=== PATIENT | female | born 1990 | race Caucasian/White ===

== ENCOUNTER 2020-10-13 09:35 | Outpatient (REF) | payer OTHER, SELFPAY ==
[2020-10-13 10:20] LABS: MANUAL DIFF FLAG NO
[2020-10-13 10:24] LABS: Basophils Percent Auto 0.3 % (0-2); Eosinophils Absolute Auto 0.1 X10*3/uL (0.0-0.4); Eosinophils Percent Auto 1.2 % (0-4); Hematocrit 40.3 % (37-47); Hemoglobin 13.3 g/dl (12.0-16.0); Imm Gran Abs Auto 0.02 X10*3/uL (0.00-0.03); Imm Gran Pct Auto 0.3 % (0.0-0.4); Lymphocytes Absolute Auto 1.9 X10*3/uL (1.2-4.9); Lymphocytes Percent Auto 29.6 % (20-40); Mean Corpuscular Hemoglobin 29.2 pg (27.0-33.0); Mean Corpuscular Volume 88.4 fL (80-98); Mean Platelet Volume 9.1 fL (9.4-12.3); Monocytes Absolute Auto 0.5 X10*3/uL (0.1-1.2); Monocytes Percent Auto 7.2 % (2-11); Neutrophils Percent Auto 61.4 % (45-73); Platelet Count 192 X10*3/uL (160-400); Red Blood Count 4.56 X10*6/uL (4.20-5.50); Red Cell Distribution Width 12.5 % (11.0-16.0); White Blood Count 6.5 X10*3/uL (4.8-10.8)
[2020-10-13 10:54] LABS: Alanine Aminotransferase 22 U/L (0-31); Albumin Level 4.2 g/dL (3.5-5.0); Alkaline Phosphatase 98 U/L (39-117); Anion Gap 11 (12-20); Aspartate Amino Transferase 19 U/L (5-31); Bilirubin Total 0.2 mg/dL (0.0-1.0); Blood Urea Nitrogen 11 mg/dL (9-16); Carbon Dioxide 22 mmol/L (22-29); Chloride 107 mmol/L (96-108); Cholesterol 230 mg/dL; Estimated Glomerular Filt Rate > 60; Glucose Random 90 mg/dL (60-115); Lipase 15 U/L (8-78); Potassium 4.1 mmol/L (3.3-5.1); Sodium 136 mmol/L (135-145); Total Protein 7.5 g/dL (6.5-8.0)
[2020-10-13 11:19] LABS: Free T4 (Free Thyroxine) 0.95 ng/dL (0.71-1.85)
== END 2020-10-13 09:36 | disposition home or self-care (01) ==
LOC: HO.LAB 09:35
PROVIDERS: PCP Internal Medicine; Visit Provider Internal Medicine
DX: Z00.00 Encounter for general adult medical examination without abnormal findings (principal); R63.5 Abnormal weight gain
CPT/HCPCS: 36415; 80053; 82465; 83690; 84439; 84443; 85025; 86140

== ENCOUNTER 2021-11-29 15:16 | Outpatient (REF) | payer OTHER, SELFPAY ==
[2021-11-29 15:30] LABS: MANUAL DIFF FLAG NO
[2021-11-29 17:26] LABS: Basophils Percent Auto 0.3 % (0-2); Eosinophils Absolute Auto 0.1 X10*3/uL (0.0-0.4); Eosinophils Percent Auto 1.3 % (0-4); Hematocrit 40.7 % (37.0-47.0); Hemoglobin 13.3 g/dl (12.0-16.0); Imm Gran Abs Auto 0.02 X10*3/uL (0.00-0.03); Imm Gran Pct Auto 0.3 % (0.0-0.4); Lymphocytes Absolute Auto 2.5 X10*3/uL (1.2-4.9); Lymphocytes Percent Auto 33.2 % (20-40); Mean Corpuscular HGB Conc 32.7 g/dl (31.0-35.0); Mean Corpuscular Hemoglobin 29.6 pg (27.0-33.0); Mean Corpuscular Volume 90.6 fL (80.0-98.0); Monocytes Absolute Auto 0.7 X10*3/uL (0.1-1.2); Monocytes Percent Auto 8.8 % (2-11); Neutrophils Absolute Auto 4.3 x10*3/uL (2.0-8.3); Neutrophils Percent Auto 56.1 % (45-73); Platelet Count 225 X10*3/uL (160-400); Red Blood Count 4.49 X10*6/uL (4.20-5.50); Red Cell Distribution Width 12.8 % (11.0-16.0); White Blood Count 7.6 X10*3/uL (4.8-10.8)
[2021-11-29 17:57] LABS: Alanine Aminotransferase 39 U/L (0-31); Albumin Level 4.2 g/dL (3.5-5.0); Alkaline Phosphatase 113 U/L (39-117); Anion Gap 15 (12-20); Aspartate Amino Transferase 29 U/L (5-31); Bilirubin Total < 0.2 mg/dL (0.0-1.0); Blood Urea Nitrogen 16 mg/dL (9-16); Calcium 9.3 mg/dL (8.4-10.2); Carbon Dioxide 26 mmol/L (22-29); Chloride 104 mmol/L (96-108); Cholesterol 262 mg/dL; Estimated Glomerular Filt Rate > 60; Glucose Random 72 mg/dL (60-115); Sodium 141 mmol/L (135-145); Total Protein 7.8 g/dL (6.5-8.0)
[2021-11-29 18:08] LABS: Thyroid Stimulating Hormone 1.58 uIU/mL (0.32-4.0)
== END 2021-11-29 15:17 | disposition home or self-care (01) ==
LOC: HO.LAB 15:16
PROVIDERS: PCP Internal Medicine; Visit Provider Internal Medicine
DX: Z00.00 Encounter for general adult medical examination without abnormal findings (principal)
CPT/HCPCS: 36415; 80053; 82465; 84443; 85025

== ENCOUNTER 2021-12-15 09:15 | Outpatient (REF) | payer OTHER, SELFPAY ==
[2021-12-15 12:12] LABS: Cholesterol 254 mg/dL; HDL Cholesterol 47 mg/dL; LDL Cholesterol Calculated 180 mg/dl; Triglycerides 137 mg/dL
== END 2021-12-15 09:16 | disposition home or self-care (01) ==
LOC: HO.WFDLDS 09:15
PROVIDERS: Visit Provider Internal Medicine
DX: E78.00 Pure hypercholesterolemia, unspecified (principal)
CPT/HCPCS: 36415; 80061

== ENCOUNTER 2022-09-08 15:51 | Outpatient (REF) | payer OTHER, SELFPAY ==
[2022-09-08 16:00] LABS: MANUAL DIFF FLAG NO
[2022-09-08 16:16] LABS: Basophils Percent Auto 0.4 % (0-2); Eosinophils Absolute Auto 0.1 X10*3/uL (0.0-0.4); Eosinophils Percent Auto 1.3 % (0-4); Hematocrit 40.8 % (37.0-47.0); Hemoglobin 13.7 g/dl (12.0-16.0); Imm Gran Abs Auto 0.02 X10*3/uL (0.00-0.03); Imm Gran Pct Auto 0.3 % (0.0-0.4); Lymphocytes Absolute Auto 2.6 X10*3/uL (1.2-4.9); Lymphocytes Percent Auto 36.5 % (20-40); Mean Corpuscular HGB Conc 33.6 g/dl (31.0-35.0); Mean Corpuscular Hemoglobin 30.2 pg (27.0-33.0); Mean Corpuscular Volume 90.1 fL (80.0-98.0); Mean Platelet Volume 8.6 fL (9.4-12.3); Monocytes Absolute Auto 0.5 X10*3/uL (0.1-1.2); Monocytes Percent Auto 7.1 % (2-11); Neutrophils Absolute Auto 3.9 x10*3/uL (2.0-8.3); Neutrophils Percent Auto 54.4 % (45-73); Platelet Count 181 X10*3/uL (160-400); Red Blood Count 4.53 X10*6/uL (4.20-5.50); Red Cell Distribution Width 12.3 % (11.0-16.0); White Blood Count 7.2 X10*3/uL (4.8-10.8)
[2022-09-08 20:00] LABS: Anion Gap 14 (12-20); Blood Urea Nitrogen 14 mg/dL (9-16); Calcium 9.9 mg/dL (8.4-10.2); Carbon Dioxide 25 mmol/L (22-29); Chloride 106 mmol/L (96-108); Cholesterol 266 mg/dL; Estimated Glomerular Filt Rate > 60; Glucose Random 89 mg/dL (60-115); Potassium 4.1 mmol/L (3.3-5.1); Sodium 141 mmol/L (135-145)
[2022-09-08 20:07] LABS: Free T4 (Free Thyroxine) 0.91 ng/dL (0.71-1.85); Thyroid Stimulating Hormone 1.26 uIU/mL (0.32-4.0)
== END 2022-09-08 15:52 | disposition home or self-care (01) ==
LOC: HO.LAB 15:51
PROVIDERS: PCP Internal Medicine; Visit Provider Internal Medicine
DX: M54.9 Dorsalgia, unspecified (principal); R63.5 Abnormal weight gain; E78.00 Pure hypercholesterolemia, unspecified
CPT/HCPCS: 36415; 80048; 82465; 84439; 84443; 85025

== ENCOUNTER 2022-10-02 10:19 | Outpatient (REF) | payer OTHER, SELFPAY ==
[2022-10-02 12:47] LABS: Cholesterol 251 mg/dL; HDL Cholesterol 46 mg/dL; LDL Cholesterol Calculated 176 mg/dl; Triglycerides 147 mg/dL
== END 2022-10-02 10:20 | disposition home or self-care (01) ==
LOC: HO.WFDLDS 10:19
PROVIDERS: Visit Provider Internal Medicine
DX: E78.00 Pure hypercholesterolemia, unspecified (principal)
CPT/HCPCS: 36415; 80061

== ENCOUNTER 2024-12-23 15:23 | Outpatient (REF) | payer OTHER, SELFPAY ==
[2024-12-23 16:37] LABS: MANUAL DIFF FLAG NO
[2024-12-23 17:07] LABS: Hematocrit 39.6 % (37.0-47.0); Hemoglobin 13.1 g/dl (12.0-16.0); Imm Gran Abs Auto 0.02 X10*3/uL (0.00-0.03); Imm Gran Pct Auto 0.3 % (0.0-0.4); Lymphocytes Absolute Auto 2.5 X10*3/uL (1.2-4.9); Mean Corpuscular HGB Conc 33.1 g/dl (31.0-35.0); Mean Corpuscular Hemoglobin 29.6 pg (27.0-33.0); Mean Corpuscular Volume 89.4 fL (80.0-98.0); NRBC Abs Auto 0.000 X10*3/uL (0.0-0.012); NRBC Pct Auto 0.0 /100WBC (0.0-0.2); Platelet Count 218 X10*3/uL (160-400); Red Blood Count 4.43 X10*6/uL (4.20-5.50); White Blood Count 7.6 X10*3/uL (4.8-10.8)
[2024-12-23 17:39] LABS: Alanine Aminotransferase 22 U/L (0-31); Albumin Level 4.4 g/dL (3.5-5.0); Alkaline Phosphatase 88 U/L (39-117); Anion Gap 11 (12-20); Aspartate Amino Transferase 20 U/L (5-31); Blood Urea Nitrogen 15 mg/dL (9-16); Calcium 9.5 mg/dL (8.4-10.2); Carbon Dioxide 27 mmol/L (22-29); Chloride 105 mmol/L (96-108); Cholesterol 228 mg/dL (<200); Estimated Glomerular Filt Rate > 60; HDL Cholesterol 45 mg/dL (>40); Potassium 4.3 mmol/L (3.3-5.1); Sodium 139 mmol/L (135-145); Total Protein 7.9 g/dL (6.5-8.0); Triglycerides 214 mg/dL (<150)
[2024-12-24 08:00] LABS: Syphilis Screen Nonreactive (Nonreactive)
[2024-12-24 08:18] LABS: HBS Num1 0.85 mIU/mL (0-7.99); HBc Num1 0.07 S/CO (0.00-0.79); HBsAGNum1 0.55 S/CO (0.00-0.99); HIV Num 1 0.06 S/CO (0.00-0.99); Hepatitis A Antibody IgM 0.18 Index (0-0.79); Hepatitis B Surface Antigen Negative (Negative); ~HepC Num1 0.07 S/CO (0.00-0.79); ~Hepatitis A Antibody IgM Nonreactive (Nonreactive); ~Hepatitis B Surface Antibody NONREACTIVE (Nonreactive); ~Hepatitis C Antibody Nonreactive (Nonreactive)
== END 2024-12-23 15:24 | disposition home or self-care (01) ==
LOC: HO.LAB 15:23
PROVIDERS: PCP Student in an Organized Health Care Education/Training Program; Visit Provider Student in an Organized Health Care Education/Training Program
DX: Z76.89 Persons encountering health services in other specified circumstances (principal); F41.1 Generalized anxiety disorder; N64.9 Disorder of breast, unspecified; N63.13 Unspecified lump in the right breast, lower outer quadrant; Z86.018 Personal history of other benign neoplasm; Z80.3 Family history of malignant neoplasm of breast
CPT/HCPCS: 36415; 80053; 80061; 82306; 83036; 84443; 85025; 86704; 86706; 86709; 86780; 86803; 87340; 87389; 96127

== ENCOUNTER 2024-12-23 15:23 | Outpatient (AMB) | payer OTHER, SELFPAY ==
--- NOTE | 2024-12-23 15:25 | A.OFFPC_ITS ---
Vital Signs 12/23/24 15:32 Height 5 ft 7 in Weight 227 lb BMI 35.5 BP 132/84 Blood Pressure Location Lt brachial Position Sitting Pulse 88 Pulse Source Pulse Oximeter Temp 97.6 F Temp Source Temporal Artery Scan Pulse Oximetry (%) 98 Oxygen Delivery Method Room Air Intake Visit Reasons: [id number] contracting support specialist referral Tomographic Tech Required: No Accompanied by: Self / Same As Patient Allergies No Known Allergies Allergy (Verified 12/23/24 15:26) Medication List - Last Reconciled 12/23/24 by Kirt Yadav MD sertraline 100 mg PO DAILY Tobacco use date assessed: 12/23/24 Dental Screening Dental Screen Date: 12/23/24 Did you have a dental visit in the last 12 months?: Yes Did you have a dental problem in the last 6 months where you did not have access to dental care?: No HPI HPI Comments History of Present Illness Details The patient is a 34-year-old female presenting with concerns about a newly noticed indentation in her right breast when she lifts her arm. The patient reports that she first noticed this indentation over the summer and asserts that it has not changed in size. She denies having had a mammogram due to age limitations and issues with scheduling an appointment with an OPERATION RESEARCH ANALYST since her previous provider's office transition. The patient shares her history of over the past 9 years, having recently ceased nursing a few mon ths before her youngest child turned [age]. During periods of , residual milk was still occasionally expressed, yet she denies any associated pain or discoloration around the breast. 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 Medical History: - Generalized Anxiety Disorder, managed with sertraline Surgical History: - Cholecystectomy (gallbladder removal) - Lumpectomy, left breast (phyllodes nico or, benign) - Vaginal septum resection Medications: - Sertraline, daily for Generalized Anxi ety Disorder Family History: - Maternal grandmother: Ovarian cancer - Paternal grandmother: Breast cancer Social History: - Non-smoker, never smoked - Alcohol intake: Occasionally, with con sumption typically once per month, sometimes exceeding six drinks - Mother to three daughters - Recent cessation of [facility] Medical History (Updated 12/23/24 @ 15:58 by Kirt Yadav MD) History of benign phyllodes neoplasm of breast Breast lesion Generalized anxiety disorder Family History (Updated 12/23/24 @ 15:34 by Germania Cordero MA) Mother No problems noted. Father No problems noted. Social History Housing: House Patient Tobacco Use Status: Never used Tobacco e-Cigarette/Vaping Use: Never Used service: No Current occupational status: employed Cognitive needs: No Hearing needs: No Vision needs: No Questionnaire PHQ-9 Over the last 2 weeks, how often have you been bothered by any of the following problems? 1. Little interest or pleasure in doing things: not at all 2. Feeling down, depressed, or hopeless: several days (sometimes anxiety) 3. Trouble falling or staying asleep, or sleeping too much: several days (sometimes trouble falling asleep) 4. Feeling tired or having little energy: several days 5. Poor appetite or overeating: several days 6. Feeling bad about yourself - or that you are a failure or have let yourself or your family down: not at all 7. Trouble concentrating on things, such as reading the newspaper or watching television: not at all 8. Moving or speaking so slowly that other people could have noticed. Or the opposite - being so fidgety or restless that you have been moving around a lot more than usual: not at all 9. Thoughts that you would be better off or of hurting yourself in some way: not at all Total score: 4 Depression Screening Interpretation: Negative Depression Screening Done: Yes 55406 - PHQ-9 Billing: Yes Source: Developed by Drs. Mahin Mcdonnell, Mariia Jones, Gautam Alfonso and colleagues, with an educational lexy from [employer]. Thrive Questionnaire Date Thrive assessed: 12/23/24 I am a: Patient What is your living situation today?: I have a steady place to live Within the past 12 months, did the food you bought not last and you didn't have the money to get more?: Never true Within the past 12 months, did you worry whether your food would run out before you got money to buy more?: Never true Do you have trouble paying for medicines?: No Do you have trouble getting transportation to medical appointments?: No Do you have trouble paying your heating and electricity bill?: No Do you have trouble taking care of your child, family member or friend?: No Do you have trouble with day-to-day activities such as bathing, preparing meals, shopping, managing finances, etc.?: No Are you currently unemployed and looking for a job?: No Are you interested in more education?: No THRIVE Score: 0 AUDIT C Alcohol Use Questionnaire (AUDIT-C) 1. How often do you have a drink containing alcohol?: Monthly or less 2. How many drinks containing alcohol do you have on a typical day when you are drinking?: 3 or 4 3. How often do you have six or more drinks on one occasion?: Less than monthly Total Score: 3 Score Reviewed/Action Taken: Yes BOYD-7 AMB Questionnaire BOYD-7 Date BOYD - 7 assessed: 12/23/24 Feeling nervous, anxious, or on edge: 1 = Several days Not being able to stop or control worryin = Not at all Worrying too much about different things: 0 = Not at all Trouble relaxin = Not at all Being so restless that it is hard to sit still: 0 = Not at all Becoming easily annoyed or irritable: 0 = Not at all Feeling afraid as if something awful might happen: 0 = Not at all Total BOYD-7 score (0-4 normal; 5-9 mild; 10-14 moderate; 15-21 severe): 1 Source: Developed by Drs. Mahin Mcdonnell, Mariia Jones, Gautam Alfonso and colleagues, with an educational lexy from [employer]. BOYD-7 Assessment Billing BOYD-7 Assessment Tool: BOYD-7 Assessment 74448 Review of Systems Const Details: - Breasts: Reports asymmetry and indentation on lifting arm - Psychiatric: Denies current symptoms of depression or anxiety being uncontrolled with medication All systems reviewed & are unremarkable except as reviewed in HPI and above Physical exam (Primary Care) Vital Signs: Last Vital Signs Temp 97.6 F 12/23/24 15:32 Pulse 88 12/23/24 15:32 BP 132/84 12/23/24 15:32 Pulse Ox 98 12/23/24 15:32 Oxygen Delivery Method Room Air 12/23/24 15:32 BMI result Body Mass Index 35.5 Tobacco/Smoking Status: Tobacco use Status Tobacco use date assessed 12/23/24 12/23/24 15:27 Patient Tobacco Use Status Never used Tobacco 12/23/24 15:27 e-Cigarette/Vaping Use Never Used 12/23/24 15:27 PHQ-9: PHQ-9 Score PHQ-9: Total score 4 12/23/24 15:41 Depression Screening Interpretation: Negative Thrive Assessment: Date of Thrive Assessment Date Thrive assessed 12/23/24 12/23/24 15:27 Const Other: General: +Alert and oriented, Well nourished, No acute distress. Eye: Pupils are equal, round and reactive to light, Intact accommodation, Extraocular movements are intact, Normal conjunctiva, Vision unchanged. HENT: Normocephalic, Atraumatic, Tympanic membranes are clear, Normal hearing, Oral mucosa is moist, No pharyngeal erythema, Ear canals patent. Respiratory: Lungs CTA bilaterally, No wheeze, Respirations are non-labored. Cardiovascular: Regular rate, Regular rhythm, S1 auscultated, S2 auscultated, No murmur, Good pulses equal in all extremities, Normal peripheral perfusion, No edema. Gastrointestinal: Soft, Non-tender, Non-distended, Normal bowel sounds, No organomegaly. Breast: Indentation of Right breast at 7 O Clock position with possible mobile mass felt Musculoskeletal: Normal range of motion, Normal strength, No tenderness, No swelling, No deformity, Normal gait. Integumentary: Warm, Dry, [place], Intact. Neurologic: Alert, Oriented, Normal sensory, Normal motor function, No focal defects, Cranial Nerves II-XII are grossly intact, Normal deep tendon reflexes. Psychiatric: Cooperative, Appropriate mood & affect, Normal judgment. Coding Level of Care Code New Pt Level 4 (11196) Diagnoses Generalized anxiety disorder F41.1 Breast lesion N64.9 History of benign phyllodes neoplasm of breast Z86.018 Additional Codes BOYD-7 Assessment Billing - BOYD-7 Assessment Tool: BOYD-7 Assessment 35084 ([id number]) PHQ-9 - 78048 - PHQ-9 Billing: Yes ([id number]) Assessment & Plan Assessment & Plan (1) Generalized anxiety disorder: Comment: - Continue current medication of sertraline as it is well managing the anxiety symptoms. Discuss the potential for gradual discontinuation in the future as per the patient?s request but advise against changes due to risk of symptom recurrence. Code(s): F41.1 - Generalized anxiety disorder Category: Medical (2) Breast lesion: Comment: - Noticed indentation of the right breast over the past few months, with no lumps appreciated however on exam dose seem to have a possible lump at the 7 O Clock position with visible indentation under it. - Given her prior history of Breast Lumps requiring lumpectomy will obtain a diagnostic mammogram & breast ultrasdound STAT and refer to OBGYN and possibly breast surgery Code(s): N64.9 - Disorder of breast, unspecified Category: Medical (3) History of benign phyllodes neoplasm of breast: Comment: - Monitor with regular breast evaluations and ensure past surgical sites are asymptomatic during check-ups. Code(s): Z86.018 - Personal history of other benign neoplasm Category: Medical Plan: Healthcare Maintenance: - Arrange for mammogram and ultrasound of breast to rule out any pathology. - Address gaps in gynecological care with referral to OPERATION RESEARCH ANALYST to update the patient?s routine exams including Pap smear. Patient was informed and verbally consented to the use of an ambient scribe for clinic note documentation during this visit. Plan I explained to the patient that the indentation in the right breast needs to be assessed further to rule out any underlying pathology. Therefore, a stat mammogram and ultrasound have been ordered. I also discussed the potential need for an evaluation by a breast surgeon depending on the findings. For her generalized anxiety disorder, the current treatment with sertraline is effective, and while she is hoping to eventually discontinue it, I advised cautious management to prevent relapse of symptoms. I emphasized the importance of routine breast examinations and maintaining regular gynecological care. Orders: Orders Lipid Panel Today Z76.89 - Persons encountering health services in other specified circumstances Syphilis Screen Today Z76.89 - Persons encountering health services in other specified circumstances TSH reflex Free T4 Today Z76.89 - Persons encountering health services in other specified circumstances MM diagnostic mammo BI Today N64.9 - Disorder of breast, unspecified MM tomosynthesis diagnostic BI Today N64.9 - Disorder of breast, unspecified US breast RT complete Today N64.9 - Disorder of breast, unspecified Complete Blood Count Auto Diff Today Z76.89 - Persons encountering health services in other specified circumstances Comprehensive Met. Panel Today Z76.89 - Persons encountering health services in other specified circumstances Hemoglobin A1c Today Z76.89 - Persons encountering health services in other specified circumstances Hepatitis A,B,C Profile Today Z76.89 - Persons encountering health services in other specified circumstances HIV Ab/Ag Today Z76.89 - Persons encountering health services in other specified circumstances Vitamin D 25-OH Total Today Z76.89 - Persons encountering health services in other specified circumstances Referrals OPERATION RESEARCH ANALYST Referral N64.9 - Disorder of breast, unspecified Patient Instructions: - Continue taking your medication as prescribed. - Attend the stat imaging appointments as scheduled. - Follow up with breast surgery and OPERATION RESEARCH ANALYST as per referrals made. - Monitor your breast changes and report any further asymmetry or lumps. - Avoid excessive alcohol consumption.
[2024-12-23 15:32] VITALS: BP 132/84; PULSE 88; TEMP 36.4; O2SAT 98; BMI 35.5
== END 2024-12-23 15:58 | disposition home or self-care (01) ==
PROVIDERS: PCP Student in an Organized Health Care Education/Training Program; Visit Provider Student in an Organized Health Care Education/Training Program
DX: F41.1 Generalized anxiety disorder (principal); N64.9 Disorder of breast, unspecified; Z86.018 Personal history of other benign neoplasm

== ENCOUNTER 2024-12-25 11:15 | Outpatient (REF) | payer OTHER, SELFPAY ==
--- NOTE | ~2024-12-25 | MM_ITS ---
EXAMINATION: MM DIAGNOSTIC DIGITAL BREAST TOMOSYNTHESIS, BILATERAL Limited right breast ultrasound. CLINICAL INFORMATION: Right breast dimpling since August 10. Patient was breast-feeding at the time and since she has stopped breast-feeding her imaging this area still has not changed. Patient has a family history of breast cancer including patient's grandmother. COMPARISON: Mammography: Comparison is made with relevant prior exams. TECHNIQUE: Digital breast mammography with tomosynthesis is performed in both the craniocaudal and mediolateral oblique views along with computer-aided detection (CAD). FINDINGS: There are scattered areas of fibroglandular density. There are no significant masses, abnormal calcifications, or other abnormalities. Targeted color Doppler ultrasound scanning in the area of the patient's right breast dimpling in the lower outer quadrant demonstrates normal fibroglandular breast tissue. There is no sonographic abnormal finding. Results are discussed with the patient at time of visit. MM/MM tomosynthesis diagnostic BI IMPRESSION: Left: Negative. Right: No mammographic or sonographic abnormal finding to account for the patient's left breast dimpling lower outer quadrant. Recommend clinical evaluation follow-up. Recommend breast MRI at this time for further evaluation given patient's symptoms and negative mammogram and ultrasound. Breast MRI would need to be ordered by the patient's providing clinician. These findings and recommendations were discussed with the patient who agreed. ASSESSMENT: BI-RADS Category 1: Negative RECOMMENDATION: 1 year F/U This patient's information was entered into a reminder system with a target due date for their next mammogram. Electronically signed by: Prema Ocampo DO 12/25/2024 12:34 PM EDT
== END 2024-12-25 11:16 | disposition home or self-care (01) ==
LOC: HO.MAMMO 11:15
PROVIDERS: PCP Student in an Organized Health Care Education/Training Program; Visit Provider Student in an Organized Health Care Education/Training Program
DX: N64.9 Disorder of breast, unspecified (principal)
CPT/HCPCS: 76642; 77062; 77066

== ENCOUNTER → 2024-12-25 11:30 | Outpatient (BNV) | payer OTHER, SELFPAY | PROVIDERS: PCP Student in an Organized Health Care Education/Training Program; Visit Provider Internal Medicine | DX: R92.8 Other abnormal and inconclusive findings on diagnostic imaging of breast (principal) | CPT/HCPCS: 76642; 77062; 77066 ==

== ENCOUNTER 2025-02-11 15:02 | Outpatient (REF) | payer OTHER, SELFPAY ==
--- NOTE | ~2025-02-11 | MR_ITS ---
EXAMINATION: MR BREAST WITHOUT AND WITH CONTRAST, BILATERAL CLINICAL INFORMATION: Right breast indentation since this past summer. The patient's physician felt a right breast lump lower outer quadrant. Recent mammogram and ultrasound for palpable lump and indentation December 25, 2024 was negative. History of following these tumor left breast 15 years ago. Family history of breast cancer including maternal grandmother. COMPARISON: Comparison is made with relevant prior imaging. TECHNIQUE: MR imaging of the breast was performed using T1, T2 and fat saturated techniques. Dynamic multiphase imaging was also performed after the administration of intravenous gadolinium contrast agent. Computer generated 3D reconstruction and enhancement kinetic analysis was ulitized by the radiologist in the interpretation of this examination. FINDINGS: Breast composition: Heterogeneous fibroglandular breast tissue Background parenchymal enhancement: Moderate LEFT BREAST: Postsurgical changes. No suspicious enhancing masses or areas of non mass enhancement. No axillary or internal mammary adenopathy. RIGHT BREAST: No suspicious enhancing masses or areas of non mass enhancement. No axillary or internal mammary adenopathy. Limited views of the chest and abdomen are unremarkable. MR/MR breast BI wo/w con IMPRESSION: No MR specific evidence of malignancy. No MRI abnormal finding to account for the patient's right breast palpable lump and indentation. Recommend clinical evaluation and follow-up. If symptoms worsen additional diagnostic imaging could be ordered and performed. ASSESSMENT: LEFT BREAST: BI-RADS 2-Benign RIGHT BREAST: BI-RADS 1-Negative RECOMMENDATIONS: Yearly screening mammography Yearly Breast MRI screening surveillance. Electronically signed by: Prema Ocampo DO 02/16/2025 04:27 PM [facility]
== END 2025-02-11 15:03 | disposition home or self-care (01) ==
LOC: HO.MRI 15:02
PROVIDERS: PCP Student in an Organized Health Care Education/Training Program; Visit Provider Student in an Organized Health Care Education/Training Program
DX: N64.9 Disorder of breast, unspecified (principal); Z86.018 Personal history of other benign neoplasm
CPT/HCPCS: 77049; A9585

== ENCOUNTER → 2025-02-11 15:02 | Outpatient (BNV) | payer OTHER, SELFPAY | PROVIDERS: PCP Student in an Organized Health Care Education/Training Program; Visit Provider Internal Medicine | DX: N63.13 Unspecified lump in the right breast, lower outer quadrant (principal); Z80.3 Family history of malignant neoplasm of breast | CPT/HCPCS: 77049 ==